=== PATIENT | male | born 1990 | race Caucasian/White ===

== ENCOUNTER 2017-02-26 09:01 | Emergency (ER) | payer MEDICAID ==
[~2017-02-26] VITALS: Ht 185.4 cm; Wt 117.9 kg
[2017-02-26 11:52] VITALS: BP 130/53
== END 2017-02-26 11:52 | disposition home or self-care (01) ==
LOC: ED 09:01
DX: S23.3XXA Sprain of ligaments of thoracic spine, initial encounter (principal); F17.210 Nicotine dependence, cigarettes, uncomplicated; Z87.81 Personal history of (healed) traumatic fracture; Z71.6 Tobacco abuse counseling; X58.XXXA Exposure to other specified factors, initial encounter; Y93.89 Activity, other specified; Y99.8 Other external cause status; Y92.89 Other specified places as the place of occurrence of the external cause
CPT/HCPCS: 99406

== ENCOUNTER 2017-03-07 18:37 | Emergency (ER) | payer MEDICAID ==
[2017-03-07 20:36] VITALS: BP 121/71
== END 2017-03-07 20:36 | disposition home or self-care (01) ==
LOC: ED 18:37
DX: L98.8 Other specified disorders of the skin and subcutaneous tissue (principal); Z79.1 Long term (current) use of non-steroidal anti-inflammatories (NSAID)

== ENCOUNTER 2017-11-03 22:09 | Emergency (ER) | payer OTHER ==
[~2017-11-03] VITALS: Ht 188 cm; Wt 106.1 kg
[2017-11-04 00:02] VITALS: BP 131/67
== END 2017-11-04 00:02 | disposition home or self-care (01) ==
LOC: ED 22:09
DX: M25.512 Pain in left shoulder (principal); G62.9 Polyneuropathy, unspecified; Z90.49 Acquired absence of other specified parts of digestive tract